=== PATIENT | female | born 1960 | race Caucasian/White ===

== ENCOUNTER 2020-02-28 07:20 | Day surgery (SDC) | payer OTHER, SELFPAY ==
[2020-02-21 15:49] VITALS: BMI 31.0
--- NOTE | 2020-02-25 15:24 | P.CONAN_ITS ---
Documented by User: Ysabel Orellana 02/25/20 15:27 HPI - Anesthesia Eval Consult details Narrative: 59yo F for colonoscopy [facility] Past Medical History Medical History IBS (irritable bowel syndrome) Polymyalgia rheumatica Rheumatoid arthritis Surgical History Surgical History Hx of section Hx of colonoscopy Social History Social History Advance Directives: No Advance Directives Information Provided: Yes Meds Allergies Allergy/AdvReac Type Severity Reaction Status Date / Time banana [BANANA] Allergy Unknown TONGUE Verified 02/28/20 07:36 SWELLING oseltamivir [From TAMIFLU] Allergy Unknown HALLUCINATION, Verified 02/28/20 07:36 hallucinations walnut [WALNUT] Allergy Unknown SWOLLENT Verified 02/28/20 07:36 TONGUE codeine [Codeine] AdvReac Unknown CLOUDY PER Verified 02/28/20 07:36 PT flu vaccine AdvReac Unknown body aches Uncoded 01/17/20 00:00 Home Medications Medication Instructions Recorded Confirmed Type prednisone 1 mg PO DAILY 02/21/20 02/28/20 History Exam Exam Date and Time: February 25, 2020 1524 Height,Weight and Vital Signs: Height 5 ft 4 in Weight 82.1 kg Assessment and Plan Assessment Anesthesia Assessment: Chart Reviewed Documented by User: Risa Hernandez 02/28/20 08:06 [facility] Past Medical History Medical History IBS (irritable bowel syndrome) Polymyalgia rheumatica Rheumatoid arthritis Family History Family history of problems with anesthesia: No Surgical History Surgical History Hx of section Hx of colonoscopy History of Problems with Anesthesia: No Social History Social History Advance Directives: No Advance Directives Information Provided: Yes Meds Allergies Allergy/AdvReac Type Severity Reaction Status Date / Time banana [BANANA] Allergy Unknown TONGUE Verified 02/28/20 07:36 SWELLING oseltamivir [From TAMIFLU] Allergy Unknown HALLUCINATION, Verified 02/28/20 07:36 hallucinations walnut [WALNUT] Allergy Unknown SWOLLENT Verified 02/28/20 07:36 TONGUE codeine [Codeine] AdvReac Unknown CLOUDY PER Verified 02/28/20 07:36 PT flu vaccine AdvReac Unknown body aches Uncoded 01/17/20 00:00 Home Medications Medication Instructions Recorded Confirmed Type prednisone 1 mg PO DAILY 02/21/20 02/28/20 History Exam Height,Weight and Vital Signs: Vital Signs Temp Pulse Resp BP Pulse Ox 02/28/20 07:40 97.3 F 70 18 130/62 100 Airway Mallampati Class: II TM Dist: >3cm Neck ROM: Full Partial: Upper Heart: RRR Lungs: CTAB Assessment and Plan Assessment Anesthesia Assessment: Anesthesia Plan Discussed and Chart Reviewed Final Anesthetic Review NPO: Yes ASA Class: II Final Preanesthetic Review: No Changes in Pt Med Stat, Meds/Allgs Chart Reviewed, Consent Obtained/Reviewed and Anes Risks/Benef Reviewed Patient Risk: Low Procedure Risk: Low Anesthetic Plan Anesthetic Plan: MAC: Disposition: Standard PACU
[2020-02-28 07:40] VITALS: BP 130/62; PULSE 70; RESP 18; TEMP 36.3; O2SAT 100
[2020-02-28 07:44] VITALS: BMI 30.5
[2020-02-28] MEDS: Lactated Ringers 1,000 ML 100 ML IVCONT (07:45)
[2020-02-28 08:42] VITALS: BP 90/65; PULSE 69; RESP 16; TEMP 36.1; O2SAT 97
[2020-02-28 08:57] VITALS: BP 123/77; PULSE 73; RESP 18; TEMP 36.1; O2SAT 100
--- NOTE | 2020-02-28 09:18 | HO.POSTANES ---
Post Anesthesia Evaluation Post Anesthesia Evaluation Vital Signs: Vital Signs Temp Pulse Resp BP Pulse Ox 02/28/20 08:57 97 F 73 18 123/77 100 02/28/20 08:42 97 F 69 16 90/65 97 02/28/20 07:40 97.3 F 70 18 130/62 100 Anesthesia: Monitored Mental Status: Awake Pain Control: Satisfactory Nausea/Vomiting: None Hydration: Adequate Anesthesia-Related Issues: No Anes. Related Issues
--- NOTE | 2020-02-28 09:50 | OP_ITS ---
SURGEON: Aly Brock MD INDICATIONS: The patient presents for evaluation of personal history of tubular adenoma of the colon and colorectal cancer screening. Full consent has been obtained from her for this, including risks of bleeding and perforation. PREOPERATIVE DIAGNOSIS: POSTOPERATIVE DIAGNOSIS: PROCEDURE PERFORMED: Colonoscopy to cecum and terminal ileum. ESTIMATED BLOOD LOSS: COMPLICATIONS: ANESTHESIA: Monitored anesthesia care. ASSISTANTS: SPECIMENS: PREOPERATIVE DIAGNOSES: Colorectal cancer screening and personal history of tubular adenoma of the colon. POSTOPERATIVE DIAGNOSES: Colorectal cancer screening and personal history of tubular adenoma of the colon, mild sigmoid diverticulosis, and internal hemorrhoids. DESCRIPTION OF PROCEDURE: The patient was placed in the left lateral decubitus position. The digital rectal exam revealed no abnormalities. The Olympus video pediatric colonoscope was entered into the rectum and advanced easily to the cecum. Once in the cecum, I did identify normal-appearing cecal pouch with appendiceal orifice and a normal-appearing ileocecal valve. The terminal ileum was cannulated and appeared normal. The scope was withdrawn back in the colon. The entire cecum and ileocecal valve appeared normal. There was transillumination of light deep into the lower quadrant. The scope was slowly withdrawn assessing all mucosal surfaces carefully. Preparation was excellent. I did not visualize any sign of polyps, colitis, or angiodysplasia. There was a mild amount of sigmoid diverticulosis. In the rectum, scope was retroflexed visualizing internal hemorrhoids, but no other pathology. The rectal mucosa appeared normal. The scope was straightened out and withdrawn from the patient. She tolerated the procedure well and was returned to recovery area in stable condition. IMPRESSION: 1. Mild sigmoid diverticulosis. 2. Internal hemorrhoids. PLAN: I would recommend a repeat colonoscopy in five years for further screening and surveillance. She will otherwise see me on a p.r.n. basis. This has been discussed with her . MD JADA Blue/ITALO / [id number]
== END 2020-02-28 09:43 | disposition home or self-care (01) ==
PROVIDERS: PCP Internal Medicine; Visit Provider Internal Medicine
PROC: 0DJD8ZZ Inspection of Lower Intestinal Tract, Via Natural or Artificial Opening Endoscopic (ICD-10-PCS; CPT 45378; principal; 2020-02-28 08:30)
DX: Z12.11 Encounter for screening for malignant neoplasm of colon (principal); Z86.010 Personal history of colon polyps; K57.30 Diverticulosis of large intestine without perforation or abscess without bleeding; K64.8 Other hemorrhoids; Z88.8 Allergy status to other drugs, medicaments and biological substances
CPT/HCPCS: 45378

== ENCOUNTER 2020-06-16 07:51 | Outpatient (REF) | payer BC, SELFPAY ==
--- NOTE | 2020-06-16 07:58 | MM_ITS ---
EXAMINATION: MM SCREENING DIGITAL BREAST TOMOSYNTHESIS, BILATERAL CLINICAL INFORMATION: Screening. Asymptomatic. The lifetime risk of breast cancer based on the Tyrer-Cuzick Model is 7%. COMPARISON: Mammography: 06/11/2019, 03/23/2018, 07/16/2015 TECHNIQUE: Digital breast tomosynthesis is performed in both the craniocaudal and mediolateral oblique views along with computer-aided detection (CAD). Synthesized 2D images are generated from the tomosynthesis. FINDINGS: There are scattered areas of fibroglandular density (ACR BI-RADS breast composition Category b). There are no significant masses, abnormal calcifications, or other abnormalities. There is a dermal lesion again seen overlying posterior 6:00 right breast, previously described as an accessory nipple. The axilla and skin contours are otherwise unremarkable. MM/MM tomosynthesis screening BI IMPRESSION: No mammographic evidence of malignancy. ASSESSMENT: BI-RADS 2: Benign RECOMMENDATION: Routine annual mammography screening. This patient's information was entered into a reminder system with a target due date for their next mammogram.
== END 2020-06-16 07:52 | disposition home or self-care (01) ==
LOC: HO.MAMMO 07:51
PROVIDERS: PCP Internal Medicine; Visit Provider Internal Medicine
DX: Z12.31 Encounter for screening mammogram for malignant neoplasm of breast (principal)
CPT/HCPCS: 77063; 77067

== ENCOUNTER 2021-03-24 18:13 | Outpatient (REF) | payer BC, SELFPAY | END 2021-03-24 18:14 | disposition home or self-care (01) | LOC: HO.LNP 18:13 | PROVIDERS: Visit Provider Hospitalist | DX: N39.0 Urinary tract infection, site not specified (principal); R30.0 Dysuria | CPT/HCPCS: 87086; 87088; 87186 ==

== ENCOUNTER 2021-05-06 09:23 | Outpatient (REF) | payer BC, SELFPAY | END 2021-05-06 09:24 | disposition home or self-care (01) | LOC: HO.LAB 09:23 | PROVIDERS: PCP Internal Medicine; Visit Provider Advanced Practice Midwife | DX: Z01.419 Encounter for gynecological examination (general) (routine) without abnormal findings (principal); N84.1 Polyp of cervix uteri | CPT/HCPCS: 57500; 58558; 88305 ==

== ENCOUNTER 2022-04-19 06:32 | Outpatient (REF) | payer BC, SELFPAY ==
[2022-04-19 07:37] LABS: Estimated Average Glucose 105 mg/dL; Hemoglobin A1c % 5.3 %
[2022-04-19 08:18] LABS: Alanine Aminotransferase 23 U/L (0-31); Anion Gap 11 (12-20); Aspartate Amino Transferase 18 U/L (5-31); Blood Urea Nitrogen 21 mg/dL (9-16); Calcium 9.5 mg/dL (8.4-10.2); Carbon Dioxide 27 mmol/L (22-29); Chloride 105 mmol/L (96-108); Cholesterol 236 mg/dL; Estimated Glomerular Filt Rate > 60; Glucose Fasting 93 mg/dL (60-99); HDL Cholesterol 66 mg/dL; LDL Cholesterol Calculated 155 mg/dl; Potassium 4.4 mmol/L (3.3-5.1); Sodium 139 mmol/L (135-145); Triglycerides 76 mg/dL; Vitamin D 25-OH Total 36.3 ng/mL (>30)
== END 2022-04-19 06:33 | disposition home or self-care (01) ==
LOC: HO.LAB 06:32
PROVIDERS: PCP Internal Medicine; Visit Provider Internal Medicine
DX: Z00.01 Encounter for general adult medical examination with abnormal findings (principal); E78.5 Hyperlipidemia, unspecified; I10 Essential (primary) hypertension; K58.9 Irritable bowel syndrome, unspecified; M85.80 Other specified disorders of bone density and structure, unspecified site; R73.01 Impaired fasting glucose
CPT/HCPCS: 36415; 80048; 80061; 82306; 83036; 84450; 84460

== ENCOUNTER 2022-05-06 10:43 | Outpatient (REF) | payer BC, SELFPAY ==
--- NOTE | ~2022-05-06 | XR_ITS ---
EXAMINATION: XR KNEE, RIGHT CLINICAL INFORMATION: Right knee pain. COMPARISON: Right knee radiographs dated 06/04/2018. TECHNIQUE: Four views of the right knee. FINDINGS: Moderate medial compartment joint space narrowing. Tricompartmental marginal osteophytes. No fracture or dislocation. Superior patellar and tibial tuberosity enthesopathic spurring. No significant joint effusion. XR/XR knee RT 4V IMPRESSION: Moderate medial as well as mild patellofemoral and lateral compartment osteoarthritis. Findings are progressed when compared to the prior examination.
== END 2022-05-06 10:44 | disposition home or self-care (01) ==
LOC: HO.HMGCX 10:43
PROVIDERS: PCP Internal Medicine; Visit Provider Family Medicine
DX: M25.561 Pain in right knee (principal)
CPT/HCPCS: 73564

== ENCOUNTER 2022-08-29 08:23 | Outpatient (REF) | payer BC, SELFPAY ==
--- NOTE | ~2022-08-29 | MM_ITS ---
EXAMINATION: MM SCREENING DIGITAL BREAST TOMOSYNTHESIS, BILATERAL CLINICAL INFORMATION: Screening. Asymptomatic. The lifetime risk of breast cancer based on the Tyrer-Cuzick Model is 7%. COMPARISON: Mammography: 06/16/2020, 06/11/2019, 03/23/2018, outside exam 07/16/2015 ([facility]). TECHNIQUE: Digital breast tomosynthesis is performed in both the craniocaudal and mediolateral oblique views along with computer-aided detection (CAD). Synthesized 2D images are generated from the tomosynthesis. Additional right CC view is provided. FINDINGS: There are scattered areas of fibroglandular density (ACR BI-RADS breast composition Category b). There are no significant masses, abnormal calcifications, or other abnormalities. Minor parenchymal asymmetries are stable. There is no developing density or architectural abnormality. There is a dermal lesion again noted overlying the posterior 6:00 right breast. The axilla are unremarkable. No significant changes. MM/MM tomosynthesis screening BI IMPRESSION: No mammographic evidence of malignancy. ASSESSMENT: BI-RADS 2: Benign RECOMMENDATION: Routine annual mammography screening. This patient's information was entered into a reminder system with a target due date for their next mammogram.
== END 2022-08-29 08:24 | disposition home or self-care (01) ==
LOC: HO.MAMMO 08:23
PROVIDERS: PCP Internal Medicine; Visit Provider Internal Medicine
DX: Z12.31 Encounter for screening mammogram for malignant neoplasm of breast (principal)
CPT/HCPCS: 77063; 77067

== ENCOUNTER 2022-09-01 08:28 | Outpatient (REF) | payer BC, SELFPAY ==
--- NOTE | ~2022-09-01 | MM_ITS ---
EXAMINATION: BONE DENSITOMETRY CLINICAL INDICATION: Other specified disorders of bone density and structure, unspecified site. COMPARISON: Previous BD dated 06/11/2019 and baseline BD dated 12/08/2016. TECHNIQUE: Using a [employer] DXA System (software version: 13.1) manufactured by [employer], dual-energy x-ray absorptiometry was performed of the lumbar spine and left hip. The images are of good technical quality. Summary results are attached. FINDINGS: AP SPINE L1-L4: Current: BMD 0.863 g/cm2, Z-score -1.9, T-score -2.6, osteoporosis, 6.8% decrease from previous, 17.5% decrease from baseline (<5% change is not significant). Prior: BMD 0.926 g/cm2. Baseline: BMD 1.046 g/cm2. LEFT FEMUR, NECK: Current: BMD 0.749 g/cm2, Z-score -1.2, T-score -2.1, osteopenia. Prior: BMD 0.796 g/cm2. Baseline: BMD 0.820 g/cm2. LEFT FEMUR, TOTAL: Current: BMD 0.781 g/cm2, Z-score -1.2, T-score -1.8, osteopenia, 7.0% decrease from previous, 13.8% decrease from baseline (<5% change is not significant). Prior: BMD 0.840 g/cm2. Baseline: BMD 0.906 g/cm2. IDENTIFIED RISK FACTORS: Glucocorticoids (chronic), menopause, osteoporosis. HISTORY OF FRACTURE: None listed. MEDICATIONS: Calcium, vitamin D. MM/XR DEXA axial skeleton IMPRESSION: 1. DIAGNOSIS: Osteoporosis based on the lowest T-score value of -2.6 in the lumbar spine applying World Health Organization criteria. 2. 10-YEAR FRACTURE RISK PREDICTION, FRAX: According to the guidelines, FRAX calculation should only be performed on patients in the osteopenia bone density category. Therefore, FRAX was not performed on this patient. 3. Treatment Recommendations: NOF guidelines recommend consideration for treatment in postmenopausal women and men age 50 and older presenting with the following: -A hip or vertebral (clinical or morphometric) fracture. -T-score less than or equal to -2.5 at the femoral neck or spine after appropriate evaluation to exclude secondary causes. -Low bone mass at the hip or spine and a 10-year fracture probability by FRAX of greater than or equal to 3% for hip fracture or greater than or equal to 20% for major osteoporotic fracture based on the [place] adapted WHO algorithm. 4. Other Recommendations: All treatment decisions require clinical judgment and consideration of individual patient factors, including patient preferences, comorbidities, previous drug use, risk factors not captured in the FRAX model (e.g. frailty, falls, vitamin D deficiency, increased bone turnover, interval significant decline in bone density) and possible under or overestimation of fracture risk by FRAX. Additional medical evaluation for secondary cause of low bone mineral density may be appropriate. FUTURE SCAN RECOMMENDATION: People with diagnosed cases of osteoporosis or at high risk for fracture should have regular bone mineral density tests. For patients eligible for Medicare, routine testing is allowed once every 2 years. The testing frequency can be increased to one year for patients who have rapidly progressing disease, those who are receiving or discontinuing medical therapy to restore bone mass, or have additional risk factors.
== END 2022-09-01 08:29 | disposition home or self-care (01) ==
LOC: HO.MAMMO 08:28
PROVIDERS: Visit Provider Internal Medicine
DX: Z13.820 Encounter for screening for osteoporosis (principal); M85.80 Other specified disorders of bone density and structure, unspecified site; N95.9 Unspecified menopausal and perimenopausal disorder
CPT/HCPCS: 77080

== ENCOUNTER 2023-08-29 08:14 | Outpatient (AMB) | payer BC, SELFPAY ==
--- NOTE | 2023-08-29 08:18 | A.OFFPC_ITS ---
Vital Signs 08/29/23 08:26 Height 5 ft 4 in Weight 186 lb BMI 31.9 BP 130/64 Blood Pressure Location Lt brachial Position Sitting Pulse 72 Pulse Source Pulse Oximeter Pulse Oximetry (%) 97 Oxygen Delivery Method Room Air Intake Visit Reasons: Physical exam - see comment Intake Note: Pt is here today for her PE: last mammogram 08/29/22, papsmear 05/06/21, colonoscopy 02/28/20: Allergies banana [BANANA] Allergy (Unknown, Verified 08/29/23 08:52) TONGUE SWELLING oseltamivir [From TAMIFLU] Allergy (Unknown, Verified 08/29/23 08:52) HALLUCINATION, hallucinations walnut [WALNUT] Allergy (Unknown, Verified 08/29/23 08:52) SWOLLENT TONGUE codeine [Codeine] Adverse Reaction (Unknown, Verified 08/29/23 08:52) CLOUDY PER PT flu vaccine Adverse Reaction (Unknown, Uncoded 08/29/23 08:52) body aches Medication List - Last Reconciled 08/29/23 by Daly Rivas MD ascorbic [id number] 1,000 mg (Emergen-C) ea PO Bifidobacterium infantis (Align) mg PO cholecalciferol (vitamin D3) 25 mcg PO DAILY multivitamin 1 tab PO DAILY nystatin-triamcinolone 100,000-0.1 unit/g-% 1 appl topical BID 10 days Tobacco use date assessed: 08/29/23 Dental Screening Dental Screen Date: 08/29/23 Did you have a dental visit in the last 12 months?: Yes Did you have a dental problem in the last 6 months where you did not have access to dental care?: Yes Was dental information given to patient?: Patient has dentist HPI Physical exam - see comment HPI Details 62-year-old lady with history of hyperli pidemia, impaired fasting glucose, history of adenomatous polyps in colon, osteopenia, generalized anxiety disorder, here today for her physical exam. She does not want to get any vaccines. She is due for her screening mammogram, last done August 2022 with benign findings. Last Pap smear was 2020 with negative findings and is up-to-date with her screening colonoscopy, done in [address] Brock, to be repeated again in 2024, due to history of adenomatous polyp removed on previous exam. She has been having frequent urinary tract infections and has been getting year occasional urinary incontinence, [facility] Medical History (Updated 09/28/23 @ 03:07 by Daly Rivas MD) Vaccine refused by patient Generalized anxiety disorder Urinary incontinence Recurrent UTI (urinary tract infection) History of adenomatous polyp of colon COVID-19 vaccination declined Cervical polyp History of COVID-19 Refused influenza vaccine Essential hypertension Impaired fasting glucose Tubular adenoma of colon Osteopenia Hyperlipidemia Polymyalgia rheumatica IBS (irritable bowel syndrome) Surgical History Hx of section Hx of colonoscopy Family History Father Lung cancer Mother Alcoholism CVA (cerebral vascular accident) Other Mental health disorder Substance use disorder Social History Housing: House Alcohol intake: current Alcohol intake frequency: a few times a month Patient Tobacco Use Status: Never used Tobacco e-Cigarette/Vaping Use: Never Used Second Hand Smoke Exposure: No Current occupational status: employed Cognitive needs: No Hearing needs: No Vision needs: Yes Questionnaire PHQ-9 Over the last 2 weeks, how often have you been bothered by any of the following problems? 1. Little interest or pleasure in doing things: not at all 2. Feeling down, depressed, or hopeless: not at all 3. Trouble falling or staying asleep, or sleeping too much: several days 4. Feeling tired or having little energy: not at all 5. Poor appetite or overeating: several days 6. Feeling bad about yourself - or that you are a failure or have let yourself or your family down: not at all 7. Trouble concentrating on things, such as reading the newspaper or watching television: not at all 8. Moving or speaking so slowly that other people could have noticed. Or the opposite - being so fidgety or restless that you have been moving around a lot more than usual: not at all 9. Thoughts that you would be better off or of hurting yourself in some way: not at all Total score: 2 Depression Screening Interpretation: Negative Depression Screening Done: Yes 59315 - PHQ-9 Billing: Yes Source: Developed by Drs. Aly Kothari, Aubree Loja, Jonathan Kent and colleagues, with an educational dat from [employer]. Thrive Questionnaire Date Thrive assessed: 08/29/23 I am a: Patient What is your living situation today?: I have a steady place to live Within the past 12 months, did the food you bought not last and you didn't have the money to get more?: Never true Within the past 12 months, did you worry whether your food would run out before you got money to buy more?: Never true Do you have trouble paying for medicines?: No Do you have trouble getting transportation to medical appointments?: No Do you have trouble paying your heating and electricity bill?: No Do you have trouble taking care of your child, family member or friend?: No Do you have trouble with day-to-day activities such as bathing, preparing meals, shopping, managing finances, etc.?: No Are you currently unemployed and looking for a job?: No Are you interested in more education?: No THRIVE Score: 0 AUDIT C Alcohol Use Questionnaire (AUDIT-C) 1. How often do you have a drink containing alcohol?: 2-3 times a week 2. How many drinks containing alcohol do you have on a typical day when you are drinking?: 1 or 2 3. How often do you have six or more drinks on one occasion?: Never Total Score: 3 CHERRY-7 AMB Questionnaire CHERRY-7 Date CHERRY - 7 assessed: 08/29/23 Feeling nervous, anxious, or on edge: 1 = Several days Not being able to stop or control worryin = Several days Worrying too much about different things: 1 = Several days Trouble relaxin = Not at all Being so restless that it is hard to sit still: 0 = Not at all Becoming easily annoyed or irritable: 0 = Not at all Feeling afraid as if something awful might happen: 0 = Not at all Total CHERRY-7 score (0-4 normal; 5-9 mild; 10-14 moderate; 15-21 severe): 3 Source: Developed by Drs. Aly Kothari, Aubree Loja, Jonathan Kent and colleagues, with an educational dat from [employer]. CHERRY-7 Assessment Billing CHERRY-7 Assessment Tool: CHERRY-7 Assessment 43823 Review of Systems Const Denies body aches, Denies fatigue, Denies fever(s), Denies headache(s) and Denies weakness Eyes Denies change in vision ENT Denies ear discharge, Denies headache(s), Denies nasal congestion, Denies nasal discharge, Denies neck pain and Denies sore throat Card Denies chest pain, Denies lightheadedness, Denies palpitations and Denies dyspnea Resp Denies chest congestion, Denies cough, Denies dyspnea and Denies wheezing GI Denies abdominal pain, Denies change in bowel habits and Denies heartburn Denies urinary frequency, Denies dysuria and Denies urinary urgency Musc Denies neck pain Skin/Breast Denies lesions and Denies rash Neuro Denies headache(s) and Denies weakness Psych Reports no additional complaints Endo Denies fatigue, Denies polydipsia, Denies polyuria and Denies palpitations Martin/Lymph Denies easy bruising Aller/Immun Denies seasonal rhinorrhea and Denies wheezing Physical exam (Primary Care) Vital Signs: Last Vital Signs Pulse 72 08/29/23 08:26 BP 130/64 08/29/23 08:26 Pulse Ox 97 08/29/23 08:26 Oxygen Delivery Method Room Air 08/29/23 08:26 BMI result Body Mass Index 31.9 Tobacco/Smoking Status: Tobacco use Status Tobacco use date assessed 08/29/23 08/29/23 08:23 Patient Tobacco Use Status Never used Tobacco 08/29/23 08:19 e-Cigarette/Vaping Use Never Used 08/29/23 08:19 PHQ-9: PHQ-9 Score PHQ-9: Total score 2 08/29/23 09:32 Depression Screening Interpretation: Negative Thrive Assessment: Date of Thrive Assessment Date Thrive assessed 08/29/23 08/29/23 09:32 Const Other: Alert oriented x3, no acute distress noted, ambulatory normal gait HENMT Head: Yes normocephalic Ears: external ears normal, TM's normal bilaterally and EAC's normal Face and sinus: Yes face symmetric Mouth: Normal oral and palatal mucosa present, oropharynx normal and moist mucous membranes Eyes General: appearance normal, both eyes and all related structures Neck Neck: Yes full ROM, Yes no lymphadenopathy and Yes supple Chest Breast/axilla palpation: normal palpation of the breasts Resp Auscultation: clear to auscultation bilaterally Cardio Other: S1-S2 present regular rate and rhythm GI Palpation (GI): Soft to palpation, nontender, no guarding and no masses Auscultation: normal bowel sounds General: Yes no CVA tenderness Back/Spine/Pelvis Back: no CVA tenderness Skin General skin exam: no rashes or lesions noted Neuro General: gait normal, Normal light touch and pain sensation, no focal motor deficits and CN's II-XI intact bilaterally Extrem Other: No gross bone deformity, no joint swelling a full range of motion in all joints Psych Appearance: grossly normal and well kempt Mental Status: mental status grossly normal Speech and movement: Normal speech and movement present Affect: normal affect Thought process: Normal thought process present Assessment and Plan Assessment & Plan (1) Annual visit for general adult medical examination with abnormal findings: Code(s): Z00.01 - Encounter for general adult medical examination with abnormal findings Plan: Will check appropriate labs. Recommended dental visit every 6 months and regular eye exams, at least every 2 years. Take adequate calcium in diet and vitamin-D 3 at 2000 IU per cap once a day, in addition to weight-bearing exercises to help maintain good muscle tone and weight control. Instructed to do self-breast exam, and continue with yearly mammogram, already has an appointment scheduled together with her bone density scan. Patient declines getting any vaccines. Up-to-date with her screening colonoscopy due again in 2024. (2) Recurrent UTI (urinary tract infection): Code(s): N39.0 - Urinary tract infection, site not specified Plan: Urology consult ordered (3) Urinary incontinence: Code(s): R32 - Unspecified urinary incontinence Qualifiers: Urinary Incontinence type: mixed stress and urge incontinence Qualified Code(s): N39.46 - Mixed incontinence Plan: Urology consult ordered (4) Hyperlipidemia: Code(s): E78.5 - Hyperlipidemia, unspecified Qualifiers: Hyperlipidemia type: pure hypercholesterolemia Qualified Code(s): E78.00 - Pure hypercholesterolemia, unspecified Plan: Ordered a fasting lipid panel liver enzymes. Stressed importance of following a low-cholesterol diet and getting regular exercise (5) Osteopenia: Code(s): M85.80 - Other specified disorders of bone density and structure, unspecified site Plan: Reinforced importance of doing regular weight-bearing exercise, take adequate calcium from dietary sources and continue taking vitamin-D 3 supplements, has an appointment already scheduled for a repeat bone density scan (6) Generalized anxiety disorder: Code(s): F41.1 - Generalized anxiety disorder Plan: Declines counselingreferral for therapy. Discussed ways to relieve stress including : exercise or a massage, Get enough rest, Avoid alcohol, caffeine, nicotine, and illegal drugs which can increase your anxiety level and cause sleep problems. (7) Vaccine refused by patient: Code(s): Z28.20 - Immunization not carried out because of patient decision for unspecified reason Orders: Orders Basic Metabolic Panel Fasting 08/29/23 F41.1 - Generalized anxiety disorder, M81.0 - Age-related osteoporosis without current pathological fracture, R32 - Unspecified urinary incontinence, M85.80 - Other specified disorders of bone density and structure, unspecified site, E78.5 - Hyperlipidemia, unspecified, Z00.01 - Encounter for general adult medical examination with abnormal findings, Z78.0 - Asymptomatic menopausal state Lipid Panel 08/29/23 F41.1 - Generalized anxiety disorder, M81.0 - Age-related osteoporosis without current pathological fracture, R32 - Unspecified urinary incontinence, M85.80 - Other specified disorders of bone density and structure, unspecified site, E78.5 - Hyperlipidemia, unspecified, Z00.01 - Encounter for general adult medical examination with abnormal findings, Z78.0 - Asymptomatic menopausal state Alanine Aminotransferase 08/29/23 F4.1 - Generalized anxiety disorder, M81.0 - Age-related osteoporosis without current pathological fracture, R32 - Unspecified urinary incontinence, M85.80 - Other specified disorders of bone density and structure, unspecified site, E78.5 - Hyperlipidemia, unspecified, Z 00.01 - Encounter for general adult medical examination with abnormal findings, Z78.0 - Asymptomatic menopausal state Aspartate Amino Transferase 08/29/23 F41.1 - Generalized anxiety disorder, M81.0 - Age-related osteoporosis without current pathological fracture, R32 - Unspecified urinary incontinence, M85.80 - Other specified disorders of bone density and structure, unspecified site, E78.5 - Hyperlipidemia, unspecified, Z00.01 - Encounter for general adult medical examination with abnormal findings, Z78.0 - Asymptomatic menopausal state Vitamin D 25-OH Total 08/29/23 F41.1 - Generalized anxiety disorder, M81.0 - Age-related osteoporosis without current pathological fracture, R32 - Unspecified urinary incontinence, M85.80 - Other specified disorders of bone density and structure, unspecified site, E78.5 - Hyperlipidemia, unspecified, Z00.01 - Encounter for general adult medical examination with abnormal findings, Z78.0 - Asymptomatic menopausal state Referrals Urology Referral N39.0 - Urinary tract infection, site not specified, R32 - Unspecified urinary incontinence Coding Level of Care Code Est [facility] Care 40-64y([id number]) Diagnoses Annual visit for general adult medical examination with abnormal findings Z00.01 Recurrent UTI (urinary tract infection) N39.0 Mixed stress and urge urinary incontinence N39.46 Urinary Incontinence type: mixed stress and urge incontinence Pure hypercholesterolemia E78.00 Hyperlipidemia type: pure hypercholesterolemia Osteopenia M85.80 Generalized anxiety disorder F41.1 Vaccine refused by patient Z28.20 Additional Codes CHERRY-7 Assessment Billing - CHERRY-7 Assessment Tool: CHERRY-7 Assessment [id number] ([id number])
[2023-08-29 08:26] VITALS: BP 130/64; PULSE 72; O2SAT 97; BMI 31.9
== END 2023-08-29 10:22 | disposition home or self-care (01) ==
PROVIDERS: PCP Internal Medicine; Visit Provider Internal Medicine
DX: Z00.00 Encounter for general adult medical examination without abnormal findings (principal); N39.0 Urinary tract infection, site not specified; N39.46 Mixed incontinence; E78.00 Pure hypercholesterolemia, unspecified; M85.80 Other specified disorders of bone density and structure, unspecified site; F41.1 Generalized anxiety disorder; Z28.20 Immunization not carried out because of patient decision for unspecified reason
CPT/HCPCS: 99396

== ENCOUNTER 2023-09-12 08:54 | Outpatient (REF) | payer BC, SELFPAY ==
--- NOTE | ~2023-09-12 | MM_ITS ---
EXAMINATION: MM SCREENING DIGITAL BREAST TOMOSYNTHESIS, BILATERAL CLINICAL INFORMATION: Screening. Asymptomatic. COMPARISON: Mammography: 08/29/2022, 06/16/2020, 06/11/2019, 03/23/2018, outside exam 07/16/2015 ([facility]). TECHNIQUE: Digital breast tomosynthesis is performed in both the craniocaudal and mediolateral oblique views along with computer-aided detection (CAD). Synthesized 2D images are generated from the tomosynthesis. FINDINGS: There are scattered areas of fibroglandular density (ACR BI-RADS breast composition Category b). Minor parenchymal asymmetries bilaterally are stable. There is an unchanged skin lesion in the posterior inferior right breast on the MLO view. There are no masses, suspicious calcifications, or developing regions of architectural distortion. The overall parenchymal pattern is stable from prior exams. No additional skin or axillary abnormality. MM/MM tomosynthesis screening BI IMPRESSION: No mammographic evidence of malignancy. ASSESSMENT: BI-RADS BI-RADS 2 - Benign Findings RECOMMENDATION: Routine annual mammography screening. 1 year F/U This examination should not preclude the clinical evaluation of a suspicious palpable abnormality. This patient's information was entered into a reminder system with a target due date for their next mammogram.
== END 2023-09-12 08:55 | disposition home or self-care (01) ==
LOC: HO.MAMMO 08:54
PROVIDERS: PCP Internal Medicine; Visit Provider Internal Medicine
DX: Z12.31 Encounter for screening mammogram for malignant neoplasm of breast (principal)
CPT/HCPCS: 77063; 77067

== ENCOUNTER → 2023-09-12 09:15 | Outpatient (BNV) | payer BC, SELFPAY | PROVIDERS: PCP Internal Medicine; Visit Provider Radiology Diagnostic Radiology | DX: Z12.31 Encounter for screening mammogram for malignant neoplasm of breast (principal) | CPT/HCPCS: 77063; 77067 ==

== ENCOUNTER 2023-10-24 12:23 | Outpatient (AMB) | payer BC, SELFPAY ==
--- NOTE | 2023-10-24 13:01 | A.OFFVIS_ITS ---
Intake Visit Reasons: recurrent UTI and urinary incontinence Intake Note: New Patient presents today for initial visit to establish treatment for : recurrent uti and urinary incontinence Urology Medications: none Allergies to Antibiotic: none Blood Thinner: none PVR:0ml's Skip Miner Required: No Accompanied by: Self / Same As Patient Allergies banana [BANANA] Allergy (Unknown, Verified 10/24/23 13:07) TONGUE SWELLING oseltamivir [From TAMIFLU] Allergy (Unknown, Verified 10/24/23 13:07) HALLUCINATION, hallucinations walnut [WALNUT] Allergy (Unknown, Verified 10/24/23 13:07) SWOLLENT TONGUE codeine [Codeine] Adverse Reaction (Unknown, Verified 10/24/23 13:07) CLOUDY PER PT flu vaccine Adverse Reaction (Unknown, Uncoded 10/24/23 13:07) body aches HPI Comments Details: Jamee is a very pleasant 62-year-old female patient of Dr. Rivas. She has a PMH of anxiety, recurrent UTIs, cervical polyp, hypertension, osteopenia, hyperlipidemia, hyperlipidemia, polymyalgia rheumatica, and IBS. She presents to the office today as a new patient for recurrent UTIs. In discussion with the patient today she reports a longstanding history of recurrent UTIs however has not had one in over a year. She reports recommendations were made for urology referral for further assessment evaluation. She currently denies any bothersome urinary issues or concerns. She does report history of IBS and issues with constipation when anxious. In office urinalysis results reviewed with the patient today. Microscopic hematuria noted with a pH of 5.5. Dis cussed at length importance of drinking water daily for overall health and well- being. Discussed at length potential causes of microscopic hematuria as well as further workup. When asked she denies any previous workplace chemical exposure and or nicotine dependence. She denies any bothersome urinary issues or concerns. She denies urinary urgency, urinary frequency, incontinence, nocturia, hematuria, dysuria, foul smelling urine, changes to urinary stream, flank pain, fever, and or chills. She is happy with her current voiding parameters. PVR 0 mL. Discussed at length potential causes of recurrent urinary tract infections. Discussed obtaining retroperitoneal ultrasound for further assessment evaluation however patient declines at this time. She otherwise offers no other issues or concerns at this time. [facility] Medical History Vaccine refused by patient Generalized anxiety disorder Urinary incontinence Recurrent UTI (urinary tract infection) History of adenomatous polyp of colon COVID-19 vaccination declined Cervical polyp History of COVID-19 Refused influenza vaccine Essential hypertension Impaired fasting glucose Tubular adenoma of colon Osteopenia Hyperlipidemia Polymyalgia rheumatica IBS (irritable bowel syndrome) Surgical History Hx of section Hx of colonoscopy Family History Father Lung cancer Mother Alcoholism CVA (cerebral vascular accident) Other Mental health disorder Substance use disorder Social History Housing: House Alcohol intake: current Alcohol intake frequency: a few times a month Patient Tobacco Use Status: Never used Tobacco e-Cigarette/Vaping Use: Never Used Second Hand Smoke Exposure: No Current occupational status: employed Cognitive needs: No Hearing needs: No Vision needs: Yes Review of Systems Const All systems reviewed & are unremarkable except as noted in HPI and below Physical Exam Const General: cooperative, healthy appearing, comfortable, no acute distress, well developed, alert and awake Orientation/consciousness: patient oriented x3 Limitations: no limitations HEENT Head: Yes normal to inspection, Yes normocephalic and Yes atraumatic Ears: hearing grossly normal bilaterally Eyes General: appearance normal, both eyes and all related structures Neck Neck: Yes normal visual inspection and Yes trachea midline Chest Chest palpation & inspection: normal inspection of the chest Resp Effort & Inspection: normal respiratory effort and able to speak in complete sentences Cardio Rate: regular rate GI Inspection: Yes normal to inspection General: Yes no CVA tenderness Back/Spine/Pelvis Back: no CVA tenderness Skin General skin exam: no rashes or lesions noted Neuro General: patient oriented x3 Extrem General: Yes normal to inspection Psych Appearance: grossly normal and well kempt Mental Status: mental status grossly normal Speech and movement: Normal speech and movement present and Clear speech present Affect: normal affect Attitude: cooperative Thought process: Normal thought process present Thought content: Normal thought content present Insight: Fair insight present (Psych) Judgement: Fair judgement present (Psych) Office Procedures Post Void Residual Post Residual Void Post Void Residual (PVR): 0 [id number] Void Residual by ultrasound Results AMB Urinalysis, Automated UA Leukoctes 0 Ramakrishna/uL Last Edit by Dailysinglegurinder Harris on 10/24/23 13:28 UA Nitrite Negative Last Edit by Dailysinglegurinder Harris on 10/24/23 13:28 UA Urobilinogen 0.2 mg/dL Last Edit by [email or web address] on 10/24/23 13:28 UA Protein 15 mg/dL Last Edit by waliap on 10/24/23 13:28 UA pH 5.5 Last Edit by ADVIZEmarlon Harris on 10/24/23 13:28 UA Blood 10 Aj/uL Last Edit by waliap on 10/24/23 13:28 UA Specific [place] 1.030 Last Edit by waliap on 10/24/23 13:28 UA Ketone Negative Last Edit by waliap on 10/24/23 13:28 UA Bilirubin 0 mg/dL Last Edit by waliap on 10/24/23 13:28 UA Glucose 0 mg/dL Last Edit by ADVIZEmarlon Plantigaap on 10/24/23 13:28 Results Reviewed Results Reviewed: Laboratory Last Values Urine pH (Auto) 5.5 10/24/23 13:08 Specific [place] (Auto) 1.030 10/24/23 13:08 Urine Protein (Auto) 15 mg/dL 10/24/23 13:08 Glucose (UA)(Auto) 0 mg/dL 10/24/23 13:08 Urine Ketones (Auto) Negative 10/24/23 13:08 Urine Blood (Auto) 10 Aj/uL 10/24/23 13:08 Urine Nitrite (Auto) Negative 10/24/23 13:08 Urine Bilirubin (Auto) 0 mg/dL 10/24/23 13:08 Urine Urobilinogen (Auto) 0.2 mg/dL 10/24/23 13:08 Leukocyte Esterase (Auto) 0 Ramakrishna/uL 10/24/23 13:08 Assessment & Plan Assessment & Plan (1) Recurrent UTI (urinary tract infection): Code(s): N39.0 - Urinary tract infection, site not specified Category: Medical Plan In office urinalysis results reviewed with the patient today; as noted above. PVR 0 mL. Discussed UTI prevention with D mannose supplement, vitamin-C, increasing fluid intake, behavioral therapy with timed voiding, perineal hygiene and postcoital voiding, and management of constipation with stool softeners and increased fiber intake. Discussed obtaining retroperitoneal ultrasound however patient declines at this time. Patient currently denies any bothersome urinary issues or concerns. She reports be happy with current voiding parameters. Discussed at length potential causes of microscopic hematuria; discussed further workup versus surveillance monitoring; risks and benefits of these interventions were discussed at length. Follow-up in 1 year with PVR; or sooner with any issues, concerns, or questions. Orders: Orders AMB Urinalysis Automated Today Z13.9 - Encounter for screening, unspecified AMB Post Void Residual by ultrasound Today N39.46 - Mixed incontinence Patient Instructions: The patient had an opportunity to ask questions regarding the treatment plan. All questions were answered. Physical exam, labs, and imaging were discussed and reviewed in detail. As well as risks, benefits, and discussion of treatment choices. No major barriers to understanding were identified. The patient expressed understanding and agreement with the above treatment plan. The patient was made aware they should contact our office by phone for worsening of their current condition, the appearance of new symptoms, or with any questions or concerns. Compliance is encouraged with any medications and follow up testing that is ordered. It is a privilege to be allowed the opportunity to participate in? your urological care.? Again, if you have any questions or concerns If you have any questions or concerns please do not hesitate to contact me. The office is [phone]. This note is constructed using voice recognition software. While every effort has been made to ensure accuracy tooth cutter errors may have been included. Yours sincerely, JYOTHI Massey Coding Level of Care Code New Pt Level 3 (12018) Diagnoses Recurrent UTI (urinary tract infection) N39.0 CPT Codes Post Residual Void - PVR CPT Code: 46411-Jyhr Void Residual by ultrasound ([id number])
== END 2023-10-24 13:37 | disposition home or self-care (01) ==
PROVIDERS: PCP Internal Medicine; Visit Provider Nurse Practitioner Family
DX: N39.0 Urinary tract infection, site not specified (principal); Z13.9 Encounter for screening, unspecified
CPT/HCPCS: 99203

== ENCOUNTER → 2023-10-24 12:23 | Outpatient (BNVA) | payer BC, SELFPAY | PROVIDERS: PCP Internal Medicine; Visit Provider Nurse Practitioner Family | DX: N39.0 Urinary tract infection, site not specified (principal); N39.46 Mixed incontinence | CPT/HCPCS: 51798; 81003 ==

== ENCOUNTER 2024-09-02 10:30 | Outpatient (AMB) | payer BC, SELFPAY ==
--- NOTE | 2024-09-02 10:46 | AM.OFFWIN_ITS ---
Intake Vital Signs 09/02/24 10:47 Weight 188 lb BP 140/90 H Blood Pressure Location Lt brachial Position Sitting Pulse 75 Pulse Source Pulse Oximeter Pulse Oximetry (%) 98 Oxygen Delivery Method Room Air Intake Visit Reasons: EP mental health struggles Intake Note: Patient here for mental health struggle, she was recently told she had to go to a different location to work which she states she is unable to deal with the stress that comes along with that location Patient Tobacco Use Status: Never used Tobacco Allergies banana [BANANA] Allergy (Unknown, Verified 09/02/24 10:48) TONGUE SWELLING oseltamivir [From TAMIFLU] Allergy (Unknown, Verified 09/02/24 10:48) HALLUCINATION, hallucinations walnut [WALNUT] Allergy (Unknown, Verified 09/02/24 10:48) SWOLLENT TONGUE codeine [Codeine] Adverse Reaction (Unknown, Verified 09/02/24 10:48) CLOUDY PER PT flu vaccine Adverse Reaction (Unknown, Uncoded 09/02/24 10:48) body aches Do you need a note to return to daycare/school/sports/work: Yes HPI HPI Comments History of Present Illness Details 63 y/o Female patient who presents to [facility] walk in clinic with c/o Anxiety. Pt works for [employer] and currently transferred to [place] location. Pt reports that her work environment is very Toxic and Feels very anxious going to work there. She was transferred there last week, previously worked at [employer] for 7 years. 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 Today Patient declined Therapy or medications for Mental Health. Denies SA or SI. Advised Pt to have meeting with her superiors and find conflict resolution with her the 2 co-workers. FORMERLY [facility], [facility] Medical History Vaccine refused by patient Generalized anxiety disorder Urinary incontinence Recurrent UTI (urinary tract infection) History of adenomatous polyp of colon COVID-19 vaccination declined Cervical polyp History of COVID-19 Refused influenza vaccine Essential hypertension Impaired fasting glucose Tubular adenoma of colon Osteopenia Hyperlipidemia Polymyalgia rheumatica IBS (irritable bowel syndrome) Surgical History Hx of section Hx of colonoscopy Family History Father Lung cancer Mother Alcoholism CVA (cerebral vascular accident) Other Mental health disorder Substance use disorder Social History (System 02/09/24 @ 13:02 by Liz Lee) Housing: House Alcohol intake: current Alcohol intake frequency: a few times a month Patient Tobacco Use Status: Never used Tobacco e-Cigarette/Vaping Use: Never Used Second Hand Smoke Exposure: No Current occupational status: employed Cognitive needs: No Hearing needs: No Vision needs: Yes Review of Systems Const All systems reviewed & are unremarkable except as noted in HPI and below Physical Exam Vital Signs: Last Vital Signs Pulse 75 09/02/24 10:47 BP 140/90 H 09/02/24 10:47 Pulse Ox 98 09/02/24 10:47 Oxygen Delivery Method Room Air 09/02/24 10:47 Const General: no acute distress Nutritional Appearance: obese Orientation/consciousness: patient oriented x3 Neuro General: patient oriented x3, gait normal and moves all extremities Psych Speech and movement: Normal speech and movement present Affect: Labile affect present and Anxious affect present Attitude: cooperative Thought process: Normal thought process present Thought content: suicidality, no homicidality, no delusions and no hallucinations Insight: Fair insight present (Psych) Assessment & Plan Assessment & Plan (1) Generalized anxiety disorder: Code(s): F41.1 - Generalized anxiety disorder Plan: Advised Pt to reports the Toxic work environment with her Superiors and seek conflict resolution at work. Advised to bring in [place] Paperwork for PCP to sign if appropriate at this time. Declined Mental health Tehrapy/Psych or medications. Coding Level of Care Code Est Pt Level 4 (17009) Diagnoses Generalized anxiety disorder F41.1 Time Spent (min) 20
[2024-09-02 10:47] VITALS: BP 140/90; PULSE 75; O2SAT 98
== END 2024-09-02 11:40 | disposition home or self-care (01) ==
PROVIDERS: PCP Internal Medicine; Visit Provider Nurse Practitioner Family
DX: F41.1 Generalized anxiety disorder (principal)

== ENCOUNTER → 2024-09-02 10:30 | Outpatient (BNVA) | payer BC, SELFPAY | PROVIDERS: PCP Internal Medicine; Visit Provider Nurse Practitioner Family ==

== ENCOUNTER 2024-09-11 08:24 | Outpatient (REF) | payer BC, SELFPAY ==
[2024-09-11 10:52] LABS: Influenza A PCR NEGATIVE (Negative); Influenza B PCR NEGATIVE (Negative); Resp Syncy Virus RNA Qual PCR NEGATIVE (Negative); SARS COV2 PCR INHOUSE NEGATIVE (Negative)
== END 2024-09-11 08:25 | disposition home or self-care (01) ==
LOC: HO.LAB 08:24
PROVIDERS: PCP Internal Medicine; Visit Provider Internal Medicine
DX: J06.9 Acute upper respiratory infection, unspecified (principal); Z87.42 Personal history of other diseases of the female genital tract
CPT/HCPCS: 0241U; 96127

== ENCOUNTER 2024-09-11 08:24 | Outpatient (AMB) | payer BC, SELFPAY ==
--- NOTE | 2024-09-11 08:32 | A.OFFPC_ITS ---
Vital Signs 09/11/24 08:34 Height 5 ft 4 in Weight 186 lb BMI 31.9 BP 144/72 H Blood Pressure Location Lt brachial Position Sitting Respiration 16 Pulse 66 Pulse Source Pulse Oximeter Temp 98.1 F Temp Source Oral Pulse Oximetry (%) 99 Oxygen Delivery Method Room Air Intake Visit Reasons: chest congestion and coughing x3days Intake Note: Pt is here today c/o chest congestion and coughing x3days Allergies banana [BANANA] Allergy (Unknown, Verified 09/11/24 08:57) TONGUE SWELLING oseltamivir [From TAMIFLU] Allergy (Unknown, Verified 09/11/24 08:57) HALLUCINATION, hallucinations walnut [WALNUT] Allergy (Unknown, Verified 09/11/24 08:57) SWOLLENT TONGUE codeine [Codeine] Adverse Reaction (Unknown, Verified 09/11/24 08:57) CLOUDY PER PT flu vaccine Adverse Reaction (Unknown, Uncoded 09/11/24 08:57) body aches Medication List - Last Reconciled 09/11/24 by Daly Rivas MD ascorbic valy-bkeeydxp-eyr 1,000 mg (Emergen-C) ea PO Bifidobacterium infantis (Align (B.infantis)) mg PO gtqcfisfywm-zgxksszfevs-dzndfn 2-7.8-325 mg (Candice-Greer Plus Cold (PE)) ea PO cholecalciferol (vitamin D3) 25 mcg PO DAILY multivitamin 1 tab PO DAILY Tobacco use date assessed: 09/11/24 Dental Screening Dental Screen Date: 09/11/24 Did you have a dental visit in the last 12 months?: Yes Did you have a dental problem in the last 6 months where you did not have access to dental care?: No Was dental information given to patient?: Patient has dentist HPI HPI Comments History of Present Illness Details - The patient is a 63-year-old female pr esenting with acute respiratory symptoms. - Symptoms began three days prior and in clude chest congestion, cough productive of clear phlegm and a runny nose with postnasal drainage, but no fever was recorded. - has been taking Candice-Greer plus for cold symptoms which has been helping - patient states that she has been stres sed lately due to potential job transfer which fortunately did not push through - History of secondhand smoke exposure b ut no history of smoking herself. -patient also is overdue for her cervica l cancer screening, needs a referral back to see [facility], last Pap smear was in 2020 [facility] Medical History Vaccine refused by patient Generalized anxiety disorder Urinary incontinence Recurrent UTI (urinary tract infection) History of adenomatous polyp of colon COVID-19 vaccination declined Cervical polyp History of COVID-19 Refused influenza vaccine Essential hypertension Impaired fasting glucose Tubular adenoma of colon Osteopenia Hyperlipidemia Polymyalgia rheumatica IBS (irritable bowel syndrome) Surgical History (Updated 09/11/24 @ 09:07 by Daly Rivas MD) History of cervical polypectomy Hx of section Hx of colonoscopy Family History Father Lung cancer Mother Alcoholism CVA (cerebral vascular accident) Other Mental health disorder Substance use disorder Social History Housing: House Alcohol intake: current Alcohol intake frequency: a few times a month Patient Tobacco Use Status: Never used Tobacco e-Cigarette/Vaping Use: Never Used Second Hand Smoke Exposure: No Current occupational status: employed Cognitive needs: No Hearing needs: No Vision needs: Yes Questionnaire PHQ-9 Over the last 2 weeks, how often have you been bothered by any of the following problems? 1. Little interest or pleasure in doing things: not at all 2. Feeling down, depressed, or hopeless: not at all 3. Trouble falling or staying asleep, or sleeping too much: several days 4. Feeling tired or having little energy: several days 5. Poor appetite or overeating: not at all 6. Feeling bad about yourself - or that you are a failure or have let yourself or your family down: not at all 7. Trouble concentrating on things, such as reading the newspaper or watching television: not at all 8. Moving or speaking so slowly that other people could have noticed. Or the opposite - being so fidgety or restless that you have been moving around a lot more than usual: not at all 9. Thoughts that you would be better off or of hurting yourself in some way: not at all Total score: 2 Depression Screening Interpretation: Negative Depression Screening Done: Yes 60773 - PHQ-9 Billing: Yes Source: Developed by Drs. Aly Kothari, Aubree Loja, Jonathan Kent and colleagues, with an educational dat from [employer]. Thrive Questionnaire Date Thrive assessed: 09/11/24 I am a: Patient What is your living situation today?: I have a steady place to live Within the past 12 months, did the food you bought not last and you didn't have the money to get more?: Never true Within the past 12 months, did you worry whether your food would run out before you got money to buy more?: Never true Do you have trouble paying for medicines?: No Do you have trouble getting transportation to medical appointments?: No Do you have trouble paying your heating and electricity bill?: No Do you have trouble taking care of your child, family member or friend?: No Do you have trouble with day-to-day activities such as bathing, preparing meals, shopping, managing finances, etc.?: No Are you currently unemployed and looking for a job?: No Are you interested in more education?: No Please select the resources that you would like help with: None Currently or been in a relationship where the following occur: No concerns reported THRIVE Score: 0 AUDIT C Alcohol Use Questionnaire (AUDIT-C) 1. How often do you have a drink containing alcohol?: 2-4 times a month 2. How many drinks containing alcohol do you have on a typical day when you are drinking?: 1 or 2 3. How often do you have six or more drinks on one occasion?: Never Total Score: 2 CHERRY-7 AMB Questionnaire CHERRY-7 Date CHERRY - 7 assessed: 09/11/24 Feeling nervous, anxious, or on edge: 1 = Several days Not being able to stop or control worryin = Several days Worrying too much about different things: 1 = Several days Trouble relaxin = Several days Being so restless that it is hard to sit still: 2 = More than half the days Becoming easily annoyed or irritable: 1 = Several days Feeling afraid as if something awful might happen: 0 = Not at all Total CHERRY-7 score (0-4 normal; 5-9 mild; 10-14 moderate; 15-21 severe): 7 Source: Developed by Drs. Aly Kothari, Aubree Loja, Jonathan Kent and colleagues, with an educational dat from [employer]. CHERRY-7 Assessment Billing CHERRY-7 Assessment Tool: CHERRY-7 Assessment 97083 Review of Systems Const All systems reviewed & are unremarkable except as noted in HPI and below Physical exam (Primary Care) Vital Signs: Last Vital Signs Temp 98.1 F 09/11/24 08:34 Pulse 66 09/11/24 08:34 Resp 16 09/11/24 08:34 BP 144/72 H 09/11/24 08:34 Pulse Ox 99 09/11/24 08:34 Oxygen Delivery Method Room Air 09/11/24 08:34 BMI result Body Mass Index 31.9 Tobacco/Smoking Status: Tobacco use Status Tobacco use date assessed 09/11/24 09/11/24 08:40 Patient Tobacco Use Status Never used Tobacco 09/11/24 08:32 e-Cigarette/Vaping Use Never Used 09/11/24 08:32 PHQ-9: PHQ-9 Score PHQ-9: Total score 2 09/11/24 08:59 Depression Screening Interpretation: Negative Thrive Assessment: Date of Thrive Assessment Date Thrive assessed 09/11/24 09/11/24 08:40 Currently or been in a relationship where the following occur: No concerns reported Const Other: Alert oriented x3, no acute distress noted, ambulatory normal gait HENMT Ears: external ears normal, TM's normal bilaterally and EAC's normal Face and sinus: Yes face symmetric Mouth: Normal oral and palatal mucosa present, oropharynx normal and moist mucous membranes Eyes General: appearance normal, both eyes and all related structures Neck Neck: Yes full ROM, Yes no lymphadenopathy and Yes supple Resp Auscultation: clear to auscultation bilaterally Cardio Other: S1-S2 present regular rate and rhythm GI Palpation (GI): Soft to palpation, nontender, no guarding and no masses Auscultation: normal bowel sounds Neuro General: gait normal, Normal light touch and pain sensation, no focal motor deficits and CN's II-XI intact bilaterally Extrem Other: No gross bone deformity, no joint swelling a full range of motion in all joints Coding Level of Care Code Est Pt Level 4 (42692) Diagnoses Acute upper respiratory infection J06.9 Screening for malignant neoplasm of cervix Z12.4 Additional Codes CHERRY-7 Assessment Billing - CHERRY-7 Assessment Tool: CHERRY-7 Assessment 04302 ([id number]) PHQ-9 - 30247 - PHQ-9 Billing: Yes ([id number]) Assessment & Plan Assessment & Plan (1) Acute upper respiratory infection: Code(s): J06.9 - Acute upper respiratory infection, unspecified Plan: Symptoms likely due to viral versus environmental allergies in etiology . Continue symptomatic treatment with Candice-Greer plus, may take Claritin or Zyrtec as needed for persistent runny nose and postnasal drainage advised to drink plenty of fluids, return to clinic if after 5 days no improvement of symptoms. Will check for RSV, flu and SARS (2) Screening for malignant neoplasm of cervix: Code(s): Z12.4 - Encounter for screening for malignant neoplasm of cervix Plan: Referred to 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
[2024-09-11 08:34] VITALS: BP 144/72; PULSE 66; RESP 16; TEMP 36.7; O2SAT 99; BMI 31.9
== END 2024-09-11 09:22 | disposition home or self-care (01) ==
PROVIDERS: PCP Internal Medicine; Visit Provider Internal Medicine
DX: J06.9 Acute upper respiratory infection, unspecified (principal); Z12.4 Encounter for screening for malignant neoplasm of cervix

== ENCOUNTER 2024-11-14 07:57 | Outpatient (REF) | payer BC, SELFPAY ==
--- OUTSIDE RECORDS SUMMARY | 2024-11-14 08:00 | XMS_ITS | Patient Health Record ---
Author Organization [facility] Address [address] [place] [address] Care Team Providers Care Vp Name Role Phone Robson Daugherty MD Primary Care Provider Jorge Schultz Unavailable [phone] Allergies Allergen (clinical drug ingredient) Drug/Non Drug Allergy documented on EMR Reaction Allergy Type Onset Date Status Shrimp/Shell Fish rash Drug Allergy Active Reason For Referral No Information Medications Medication SIG (Take, Route, Frequency, Duration) Notes Start Date End Date Status Night Splint AFO - L1930 as directed 11/10/2015 Active Vitamin D Active Problems Problem Type SNOMED Code ICD Code Onset Dates Problem Status W/U Status Risk Notes Problem Plantar fascial fibromatosis (78441202) Plantar fascial fibromatosis (M72.2) Active confirmed Plan Of Treatment No Information Insurance Providers Payer Name Payer Address Payer Phone Subscriber Number Group Number Insured Name Patient Relationship to Insured Coverage Start Date Coverage End Date [employer] [address] [place] [phone] [id number] Jamee Gill Self - patient is the insured Medical (General) History Medical History History ICD Code Anxiety Mumps Chicken pox Surgical History Surgery Date(Month/Year) section 11/25/80-12/13/82 tooth extraction
== END 2024-11-14 07:58 | disposition home or self-care (01) ==
LOC: HO.MAMMO 07:57
PROVIDERS: PCP Internal Medicine; Visit Provider Internal Medicine
DX: Z12.31 Encounter for screening mammogram for malignant neoplasm of breast (principal)
CPT/HCPCS: 77063; 77067

== ENCOUNTER → 2024-11-14 08:30 | Outpatient (BNV) | payer BC, SELFPAY | PROVIDERS: PCP Internal Medicine; Visit Provider Internal Medicine | DX: Z12.31 Encounter for screening mammogram for malignant neoplasm of breast (principal) | CPT/HCPCS: 77063; 77067 ==

== ENCOUNTER 2024-11-25 07:44 | Outpatient (REF) | payer BC, SELFPAY ==
--- OUTSIDE RECORDS SUMMARY | 2024-11-25 07:47 | XMS_ITS | Patient Health Record ---
Author Organization [facility] Address [address] [place] [address] Care Team Providers Care Horn Player Name Role Phone Robson Daugherty MD Primary Care Provider Jorge Schultz Unavailable [phone] Allergies Allergen (clinical drug ingredient) Drug/Non Drug [...] Status Risk Notes Problem Plantar fascial fibromatosis (94411097) Plantar fascial fibromatosis (M72.2) Active confirmed Plan Of Treatment No Information Insurance Providers Payer Name Payer Address Payer Phone Subscriber Number Group Number Insured Name Patient Relationship to Insured Coverage Start Date Coverage End Date [employer] [address] [place] [phone] [id number] Jamee Gill Self - patient is the insured Medical (General) History Medical History History ICD Code Anxiety Mumps Chicken pox Surgical History Surgery Date(Month/Year) section 11/25/80-12/13/82 tooth extraction
--- OUTSIDE RECORDS SUMMARY | 2024-11-25 07:47 | XMS_ITS | Patient Health Record ---
Author Organization [facility] Address [address] [place] [address] Care Team Providers Care Neon Sign Mechanic Name Role Phone Rob FLORES, Daly Primary Care Provider Aly Reed [phone] Allergies Allergen (clinical drug ingredient) Drug/Non Drug Allergy documented on EMR Reaction Allergy Type Onset Date Status oseltamivir Tamiflu Unknown Drug Allergy Activ e codeine Codeine Sulfate Unknown Drug Allergy A ctive Vaccine product containing Influenza virus antigen (medicinal product) flu injections (uncoded) Unknown Allergy Active Reason For Referral No Information Medications Medication SIG (Take, Route, Fr equency, Duration) Notes Start Date End Date Status predniSONE 1 MG 1 tablet Orally Once a day Active Immunizations Vaccine Route Administration Date Status Comme nts Influenza Unknown 10/16/2019 Refused Problems Problem Type SNOMED Code ICD Code Onset Dates Problem Status W/U Status Risk Notes Problem [id number] Encounter for screening for malignant neoplasm of colon (Z12.11) Active confirmed Problem [id number] Preprocedural examination (Z01.818) Active confirmed Problem 043517631 Hx of adenomatou s colonic polyps (Z86.010) Active confirmed Plan Of Treatment Future Test Test Name Order Date COLONOSCOPY 03/27/2012 COLONOSCOPY 10/16/2019 Insurance Providers Payer Name Payer Address Payer Phone Subscriber Number Group Number Insured Name Patient Relationship to Insured Coverage Start Date Coverage End Date [employer] [address] [place] [address] [id number] EVELYN DANG Self - patient is the insured Medical (General) History Medical History History ICD Code Denies CT,DM,CVA,Lung disease,renal dise ase Polymyalgia rheumatica-on 1 mg of predni sone as of the 09/2019 OV IBS-previous constipation, now some loos e stools as of the 09/2019 OV Rheumatoid arthritis Screening colonoscopy in 04/2012 with a small tubular adenoma Negative CT scan of the abdomen and norm al HIDA scan with CCK in 2018 Surgical History Surgery Date(Month/Year) C-sections
[2024-11-25 11:05] LABS: Alanine Aminotransferase 27 U/L (0-31); Anion Gap 10 (12-20); Aspartate Amino Transferase 26 U/L (5-31); Blood Urea Nitrogen 17 mg/dL (9-16); Calcium 9.0 mg/dL (8.4-10.2); Carbon Dioxide 26 mmol/L (22-29); Chloride 111 mmol/L (96-108); Cholesterol 211 mg/dL (<200); Estimated Glomerular Filt Rate > 60; HDL Cholesterol 55 mg/dL (>40); Potassium 3.9 mmol/L (3.3-5.1); Sodium 143 mmol/L (135-145); Triglycerides 88 mg/dL (<150)
== END 2024-11-25 07:45 | disposition home or self-care (01) ==
LOC: HO.LAB 07:44
PROVIDERS: PCP Internal Medicine; Visit Provider Internal Medicine
DX: E78.00 Pure hypercholesterolemia, unspecified (principal); F41.1 Generalized anxiety disorder; M85.80 Other specified disorders of bone density and structure, unspecified site; R73.01 Impaired fasting glucose
CPT/HCPCS: 36415; 80048; 80061; 82306; 84450; 84460

== ENCOUNTER 2024-11-26 13:05 | Outpatient (AMB) | payer BC, SELFPAY ==
--- OUTSIDE RECORDS SUMMARY | 2024-11-26 13:47 | XMS_ITS | Patient Health Record ---
Author Organization [facility] Address [address] [place] [address] Care Team Providers Care De Icer Finisher Name Role Phone Robson Daugherty MD Primary Care Provider Jorge Schultz Unavailable [phone] Allergies Allergen (clinical drug ingredient) Drug/Non Drug [...] Status Risk Notes Problem Plantar fascial fibromatosis (89675665) Plantar fascial fibromatosis (M72.2) Active confirmed Plan Of Treatment No Information Insurance Providers Payer Name Payer Address Payer Phone Subscriber Number Group Number Insured Name Patient Relationship to Insured Coverage Start Date Coverage End Date [employer] [address] [place] [phone] [id number] Jamee Gill Self - patient is the insured Medical (General) History Medical History History ICD Code Anxiety Mumps Chicken pox Surgical History Surgery Date(Month/Year) section 11/25/80-12/13/82 tooth extraction
--- OUTSIDE RECORDS SUMMARY | 2024-11-26 13:48 | XMS_ITS | Patient Health Record ---
Author Organization [facility] Address [address] [place] [address] Care Team Providers Care Associate Professor Of Kinesiology Name Role Phone Rob FLORES, Daly Primary Care Provider Aly Reed [phone] Allergies Allergen (clinical drug ingredient) Drug/Non Drug [...] Problem Status W/U Status Risk Notes Problem [id number] Encounter for screening for malignant neoplasm of colon (Z12.11) Active confirmed Problem [id number] Preprocedural examination (Z01.818) Active confirmed Problem 055894402 Hx of adenomatou s colonic polyps (Z86.010) Active confirmed Plan Of Treatment Future Test Test Name Order Date COLONOSCOPY 03/27/2012 COLONOSCOPY 10/16/2019 Insurance Providers Payer Name Payer Address Payer Phone Subscriber Number Group Number Insured Name Patient Relationship to Insured Coverage Start Date Coverage End Date [employer] [address] [place] [address] [id number] EVELYN DANG Self - patient is the insured Medical (General) History Medical History History ICD Code Denies [place],DM,CVA,Lung disease,renal dise ase Polymyalgia rheumatica-on 1 mg [...]
[2024-11-26 13:50] VITALS: BP 130/82; PULSE 82; RESP 16; TEMP 36.7; O2SAT 98; BMI 31.6
--- NOTE | 2024-11-26 13:50 | MHC.PC.OV ---
Vital Signs 11/26/24 13:50 Height 5 ft 4 in Weight 184 lb BMI 31.6 BP 130/82 Blood Pressure Location Lt brachial Position Sitting Respiration 16 Pulse 82 Pulse Source Pulse Oximeter Temp 98.0 F Temp Source Oral Pulse Oximetry (%) 98 Oxygen Delivery Method Room Air Intake Visit Reasons: PE reschedule per AE Intake Note: Pt is here today for her PE: last mammogram 11/14/24, papsmear 04/30/19, colonoscopy 02/28/20 Allergies banana (BANANA) Allergy (Unknown, Verified 11/26/24 23:59) TONGUE SWELLING oseltamivir (From TAMIFLU) Allergy (Unknown, Verified 11/26/24 23:59) HALLUCINATION, hallucinations walnut (WALNUT) Allergy (Unknown, Verified 11/26/24 23:59) SWOLLENT TONGUE codeine (Codeine) Adverse Reaction (Unknown, Verified 11/26/24 23:59) CLOUDY PER PT flu vaccine Adverse Reaction (Unknown, Uncoded 11/26/24 23:59) body aches Medication List - Last Reconciled 11/26/24 by Daly Rivas MD ascorbic ycua-ljmivrmn-lpi 1,000 mg (Emergen-C) ea PO calcium carbonate (Calcium 600) 600 mg PO DAILY cholecalciferol (vitamin D3) 25 mcg PO DAILY multivitamin 1 tab PO DAILY Tobacco use date assessed: 11/26/24 Dental Screening Dental Screen Date: 11/26/24 Did you have a dental visit in the last 12 months?: No Did you have a dental problem in the last 6 months where you did not have access to dental care?: No Was dental information given to patient?: Patient has dentist HPI PE reschedule per AE HPI Details 64-year-old lady with history of impaired fasting glucose, hyperlipidemia and osteoporosis , here today for her physical exam. She is up-to-date with her breast cancer screening, with last mammogram done 11/14/24 with negative findings. She had her cervical cancer screening in 2019 with negativel findings, does not want to get any further screening. Up-to-date with her colon cancer screening with last colonoscopy done 02/28/[address] Brock which showed internal hemorrhoids and diverticulosis but due to history of tubular adenoma removed in the past, repeat colonoscopy due this year. [facility] Medical History (Updated 11/27/24 @ 00:13 by Daly Rivas MD) Osteoporosis Vaccine refused by patient Urinary incontinence Recurrent UTI (urinary tract infection) History of adenomatous polyp of colon COVID-19 vaccination declined Cervical polyp History of COVID-19 Refused influenza vaccine Essential hypertension Impaired fasting glucose Tubular adenoma of colon Osteopenia Hyperlipidemia Polymyalgia rheumatica IBS (irritable bowel syndrome) Surgical History History of cervical polypectomy Hx of section Hx of colonoscopy Family History Father Lung cancer Mother Alcoholism CVA (cerebral vascular accident) Other Mental health disorder Substance use disorder Social History Housing: House Alcohol intake: current Alcohol intake frequency: a few times a month Patient Tobacco Use Status: Never used Tobacco e-Cigarette/Vaping Use: Never Used Second Hand Smoke Exposure: No Current occupational status: employed Cognitive needs: No Hearing needs: No Vision needs: Yes Questionnaire PHQ-9 Over the last 2 weeks, how often have you been bothered by any of the following problems? Depression Screening Interpretation: Negative Depression Screening Done: Yes Source: Developed by Drs. Aly Kothari, Aubree Loja, Jonathan Kent and colleagues, with an educational dat from [employer]. Thrive Questionnaire Date Thrive assessed: 09/11/24 I am a: Patient What is your living situation today?: I have a steady place to live Within the past 12 months, did the food you bought not last and you didn't have the money to get more?: Never true Within the past 12 months, did you worry whether your food would run out before you got money to buy more?: Never true Do you have trouble paying for medicines?: No Do you have trouble getting transportation to medical appointments?: No Do you have trouble paying your heating and electricity bill?: No Do you have trouble taking care of your child, family member or friend?: No Do you have trouble with day-to-day activities such as bathing, preparing meals, shopping, managing finances, etc.?: No Are you currently unemployed and looking for a job?: No Are you interested in more education?: No Please select the resources that you would like help with: None Currently or been in a relationship where the following occur: No concerns reported THRIVE Score: 0 CHERRY-7 AMB Questionnaire CHERRY-7 Date CHERRY - 7 assessed: 09/11/24 Source: Developed by Drs. Aly Kothari, Aubree Loja, Jonathan Kent and colleagues, with an educational dat from [employer]. 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 ENT Denies ear discharge, Denies headache(s), Denies nasal congestion, Denies nasal discharge, Denies neck pain and Denies sore throat Card Denies chest pain, Denies lightheadedness, Denies palpitations and Denies dyspnea Resp Denies chest congestion, Denies cough, Denies dyspnea and Denies wheezing GI Denies abdominal pain, Denies change in bowel habits and Denies heartburn Denies urinary frequency, Denies dysuria and Denies urinary urgency Musc Reports arthralgias (Recurrent in right knee ), Denies joint swelling and Denies neck pain Skin/Breast Denies lesions and Denies rash Neuro Denies headache(s) and Denies weakness Psych Reports no additional complaints Endo Denies fatigue, Denies polydipsia, Denies polyuria and Denies palpitations Martin/Lymph Denies easy bruising Aller/Immun Denies seasonal rhinorrhea and Denies wheezing Physical exam (Primary Care) Vital Signs: Last Vital Signs Temp 98.0 F 11/26/24 13:50 Pulse 82 11/26/24 13:50 Resp 16 11/26/24 13:50 BP 130/82 11/26/24 13:50 Pulse Ox 98 11/26/24 13:50 Oxygen Delivery Method Room Air 11/26/24 13:50 BMI result Body Mass Index 31.6 Tobacco/Smoking Status: Tobacco use Status Tobacco use date assessed 11/26/24 11/26/24 13:53 Patient Tobacco Use Status Never used Tobacco 11/26/24 13:53 e-Cigarette/Vaping Use Never Used 11/26/24 13:53 Depression Screening Interpretation: Negative Thrive Assessment: Date of Thrive Assessment Date Thrive assessed 09/11/24 11/26/24 13:53 Currently or been in a relationship where the following occur: No concerns reported Const Other: Alert oriented x3, no acute distress noted, ambulatory normal gait HENMT Ears: external ears normal, TM's normal bilaterally and EAC's normal Face and sinus: Yes face symmetric Mouth: Normal oral and palatal mucosa present, oropharynx normal and moist mucous membranes Eyes General: appearance normal, both eyes and all related structures Neck Neck: Yes full ROM, Yes no lymphadenopathy and Yes supple Chest Breast/axilla palpation: normal palpation of the breasts Resp Auscultation: clear to auscultation bilaterally Cardio Other: S1-S2 present regular rate and rhythm GI Palpation (GI): Soft to palpation, nontender, no guarding and no masses Auscultation: normal bowel sounds General: Yes no CVA tenderness Back/Spine/Pelvis Back: no CVA tenderness and No back tenderness Skin General skin exam: no rashes or lesions noted Neuro General: gait normal, Normal light touch and pain sensation, no focal motor deficits and CN's II-XI intact bilaterally Extrem Other: No gross bone deformity, no joint swelling a full range of motion in all joints, crepitus right knee Psych Appearance: grossly normal and well kempt Mental Status: mental status grossly normal Speech and movement: Normal speech and movement present Affect: normal affect Results Reviewed Results Reviewed: Name: Jamee Gill Age/Sex: 64/F : 1960 Unit#: [id number] Attend Dr: Daly Rivas MD Re11/25/24 Status: DEP [facility] SPEC : [id number] FROY: 11/25/24 STATUS: COMP REQ : [id number] RECD: 11/25/[address]: Daly Rivas MD COMP: 11/25/24 ENTERED: 11/25/[address]: ORDERED: Met Prof Fast, AST, ALT, Lipid Panel, Vitamin D 25-OH Test Result Flag Reference Sodium 143 135-145 mmol/L Potassium 3.9 3.3-5.1 mmol/L CL 111 H 96-108 mmol/L CO2 26 22-29 mmol/L Gap 10 L 12-20 BUN 17 H 9-16 mg/dL Creat 0.64 0.5-1.4 mg/dL eGFR > 60 Chronic Kidney Disease: Estimated GFR < 60 mL/min/1.73m2 Severe Kidney Disease: Estimated GFR < 15 mL/min/1.73m2 FBS 100 H 60-99 mg/dL A fasting glucose from 100-125 mg/dl is considered impaired (pre-diabetes). CA 9.0 8.4-10.2 mg/dL AST (GOT) 26 5-31 U/L ALT (GPT) 27 0-31 U/L Triglyceride 88 <150 mg/dL Desirable Triglyceride: less than 150 mg/dL Borderline High Triglyceride 150-199 mg/dL High Triglyceride: 200-499 mg/dL Very High Triglyceride: greater than or equal to 5OO mg/dL Cholesterol 211 H <200 mg/dL Desirable Cholesterol: less than 200 mg/dL Borderline High Cholesterol: 200-239 mg/dL High Cholesterol: greater than 239 mg/dL LDL Calculated 139 H <100 mg/dL Desirable LDL: less than 100 mg/dL Near Optimal/Above Optimal LDL: 110-129 mg/dL Borderline High LDL: 130-159 mg/dL High LDL: 160-189 mg/dL Very High LDL: greater than or equal to 190 mg/dL HDL 55 >40 mg/dL Desirable HDL: greater than 40 mg/dL Note: This HDL assay may give artificially low results in patients with liver disease. Vitamin D 25-OH 33.5 >30 ng/mL Health Based Reference Values* < 20 ng/mL Deficient 20-30 ng/mL Insufficient > 30 ng/mL Sufficient Coding Level of Care Code Est Pt Prev Care 40-64y(04417) Diagnoses Annual visit for general adult medical examination with abnormal findings Z00. Age-related osteoporosis without current pathological fracture M81.0 Osteoporosis type: age-related Presence of current pathological fracture: without current pathological fracture Pure hypercholesterolemia E78.00 Hyperlipidemia type: pure hypercholesterolemia Impaired fasting glucose R73.01 Vaccine refused by patient Z28.20 Advanced directives, counseling/discussion Z71.89 History of adenomatous polyp of colon Z86.010 Assessment & Plan Assessment & Plan (1) Annual visit for general adult medical examination with abnormal findings: Code(s): Z00.01 - Encounter for general adult medical examination with abnormal findings Plan: Latest fasting lab results reviewed with patient. Recommended dental visit every 6 months and regular eye exams, every 2 years. Instructed to do self-breast exam, and continue with yearly mammogram, currently up-to-date. Bone density scan ordered today. Patient declined getting further cervical cancer screenings. Up-to-date with her screening colonoscopy, due again this year. Declined getting any vaccines (2) Osteoporosis: Code(s): M81.0 - Age-related osteoporosis without current pathological fracture Category: Medical Qualifiers: Osteoporosis type: age-related Presence of current pathological fracture: without current pathological fracture Qualified Code(s): M81.0 - Age-related osteoporosis without current pathological fracture Plan: She has declined treatment for her osteoporosis when last checked, would like to see results of the next screening before she decides whether to start treatment or not. She has been taking vitamin-D 3 and calcium supplements and states that her work at present entails her to do a lot a heavy lifting every day. Bone density scan ordered (3) Hyperlipidemia: Code(s): E78.5 - Hyperlipidemia, unspecified Category: Medical Qualifiers: Hyperlipidemia type: pure hypercholesterolemia Qualified Code(s): E78.00 - Pure hypercholesterolemia, unspecified Plan: Reviewed recent fasting lab results with patient which showed elevated LDL cholesterol. Reinforced importance of following a low-cholesterol diet continue with regular moderate intensity exercise at least 4 times a week. (4) Impaired fasting glucose: Code(s): R73.01 - Impaired fasting glucose Category: Medical Plan: Your previous fasting blood sugars were elevated above 100 mg/dL. Impaired glucose metabolism increases the risk for developing diabetes mellitus type 2, as well as heart attack and stroke later on. Lifestyle changes that promotes weight loss, healthy eating habits, and regular exercise are important, and can prevent the progression to diabetes (5) Vaccine refused by patient: Code(s): Z28.20 - Immunization not carried out because of patient decision for unspecified reason Category: Medical Plan: Patient declines getting any vaccines (6) Advanced directives, counseling/discussion: Code(s): Z71.89 - Other specified counseling Plan: Initiated the conversation about Advanced Directives. Advanced Directives help patients prepare for current and future decisions about their medical treatment and place of care. Discussed with patient that it is a process where a patients current condition and prognosis are reviewed, their wishes for information regarding their illness are elicited, and likely medical dilemmas are presented and options discussed. Healthcare proxy form completed today. The form can be amended as needed, reviewed yearly and make changes as needed (7) History of adenomatous polyp of colon: Comment: Last colonoscopy was in [address] Brock Fragments of tubular adenoma removed on colonoscopy done in 2011 Code(s): Z86.010 - Personal history of colon polyps Category: Medical Plan: Referred back to Dr. Brock for her repeat colonoscopy Orders: Orders XR DEXA axial skeleton 11/26/24 M81.0 - Age-related osteoporosis without current pathological fracture Referrals Gastroenterology Referral Z86.010 - Personal history of colon polyps
== END 2024-11-26 14:36 | disposition home or self-care (01) ==
LOC: HO.HMCC 13:07
PROVIDERS: PCP Internal Medicine; Visit Provider Internal Medicine
DX: Z00.01 Encounter for general adult medical examination with abnormal findings (principal); M81.0 Age-related osteoporosis without current pathological fracture; E78.00 Pure hypercholesterolemia, unspecified; R73.01 Impaired fasting glucose; Z28.20 Immunization not carried out because of patient decision for unspecified reason; Z71.89 Other specified counseling; Z86.0100 Personal history of colon polyps, unspecified

== ENCOUNTER 2025-02-04 09:32 | Outpatient (REF) | payer BC, SELFPAY ==
--- NOTE | ~2025-02-04 | MM_ITS ---
EXAMINATION: DXA BONE DENSITY AXIAL HISTORY: AGE-RELATED OSTEOPOROSIS; FRACTURE 2ND TOE RT FOOT TECHNIQUE: [employer] Dual energy absorptiometry (DEXA) of the lumbar spine, total left hip, and femoral neck was performed. COMPARISON: Comparison is made with the prior examination dated 09/01/2022. FINDINGS: The bone mineral density of the lumbar spine is 0.896 g/cm2, corresponding to a T-score of -2.4, and a Z-score of -1.5. This is indicative of osteopenia. This represents a BMD change of 3.8% compared to the prior exam. This is statistically significant. The bone mineral density of the left total hip is 0.802 g/cm2, corresponding to a T-score of -1.6, and a Z-score of -0.9. This is indicative of osteopenia. This represents a BMD change of 2.7% compared to the prior exam. This is not statistically significant. The bone mineral density of the left femoral neck is 0.759 g/cm2, corresponding to a T-score of -2.0, and a Z-score of -1.0. This is indicative of osteopenia. This represents a BMD change of 1.3% compared to the prior exam. FRACTURE RISK: The FRAX index suggests a ten year probability of major osteoporotic fracture of 16.1%, and of hip fracture 2.7%. MM/XR DEXA axial skeleton IMPRESSION: Based on bone mineral density, and according to World Health Organization (WHO) criteria, the diagnosis is consistent with osteopenia. Statistically, 68% of repeat scans fall within 1 SD (+/- 0.010 g/cm2 for AP spine L1-L4) and 1 SD (+/- 0.012 g/cm2 for femur total) FRAX is a trademark of the [employer]'s [place] [facility] [employer], a World Health Organization (WHO) Collaborating Center. Electronically signed by: Aly Brasher MD 02/04/2025 10:34 AM EDT
--- OUTSIDE RECORDS SUMMARY | 2025-02-04 12:06 | XMS_ITS | Patient Health Record ---
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 Name Role Phone Rob FLORES, Daly Primary Care Provider Aly Reed [phone] Allergies Allergen (clinical drug ingredient) Drug/Non Drug [...] Problem Status W/U Status Risk Notes Problem [id number] Encounter for screening for malignant neoplasm of colon (Z12.11) Active confirmed Problem [id number] Preprocedural examination (Z01.818) Active confirmed Problem [id number] Hx of adenomatou s colonic polyps (Z86.010) Active confirmed Plan Of Treatment Future Test Test Name Order Date COLONOSCOPY 03/27/2012 COLONOSCOPY 10/16/2019 Insurance Providers Payer Name Payer Address Payer Phone Subscriber Number Group Number Insured Name Patient Relationship to Insured Coverage Start Date Coverage End Date [facility] [address] [place] [address] [id number] LAURENCE EVELYN Self - patient is the insured Medical (General) History Medical History History ICD Code Denies IA,DM,CVA,Lung disease,renal dise ase Polymyalgia rheumatica-on 1 mg [...]
--- OUTSIDE RECORDS SUMMARY | 2025-02-04 12:06 | XMS_ITS | Patient Health Record ---
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 Name Role Phone Robson Daugherty MD Primary Care Provider Jorge Schultz Unavailable [phone] Allergies Allergen (clinical drug ingredient) Drug/Non Drug [...] Status Risk Notes Problem Plantar fascial fibromatosis ([id number]) Plantar fascial fibromatosis (M72.2) Active confirmed Plan Of Treatment No Information Insurance Providers Payer Name Payer Address Payer Phone Subscriber Number Group Number Insured Name Patient Relationship to Insured Coverage Start Date Coverage End Date [employer] [address] [place] [phone] [id number] Jamee Gill Self - patient is the insured Medical (General) History Medical History History ICD Code Anxiety Mumps Chicken pox Surgical History Surgery Date(Month/Year) section 11/25/80-12/13/82 tooth extraction
== END 2025-02-04 09:33 | disposition home or self-care (01) ==
LOC: HO.MAMMO 09:32
PROVIDERS: PCP Internal Medicine; Visit Provider Internal Medicine
DX: M81.0 Age-related osteoporosis without current pathological fracture (principal)
CPT/HCPCS: 77080

== ENCOUNTER → 2025-02-04 10:00 | Outpatient (BNV) | payer BC, SELFPAY | PROVIDERS: PCP Internal Medicine; Visit Provider Radiology Diagnostic Radiology | DX: E28.39 Other primary ovarian failure (principal) | CPT/HCPCS: 77080 ==